=== PATIENT | female | born 2000 | race Caucasian/White ===

== ENCOUNTER 2021-05-04 07:15 | Emergency (ER) | payer SELFPAY ==
[2021-05-04 07:23] VITALS: BP 111/68; PULSE 71; RESP 16; TEMP 37.1; O2SAT 99; BMI 22.1
[2021-05-04 07:29] VITALS: BP 111/68; PULSE 73; RESP 18; O2SAT 100
--- NOTE | 2021-05-04 07:32 | PC.NURSE ---
Mother reports that patient was recently on a trip to [place] and began to have redness and rash to face yesterday. Patient complains of right eye pain with a rating of 5 and describes as burning. Respirations are even and unlabored with no signs of distress noted.
[2021-05-04 07:38] VITALS: BP 98/59; PULSE 64; RESP 18; O2SAT 98
--- NOTE | 2021-05-04 07:40 | W.ED.ALLEREA ---
HPI - Allergic Reaction General: Chief complaint: Allergic Reaction Stated complaint: hives Time Seen by Provider: 05/04/21 07:28 History of Present Illness: HPI narrative: Patient just returned from [place] and started having some swelling to the facial area and itching. Patient has used sunscreen on this area and other areas. Did use a stronger one on the face. Face is been itching and woke up with swelling this morning. Did have some swelling yesterday but not as bad. MD complaint: facial swelling Onset (ago): day(s) Associated symptoms: Reports itching; Deny abdominal pain, nausea or vomiting Severity: mild Treatment prior to arrival: none Review of Systems Const: Denies: fever(s), chills or body aches Eyes: Denies: change in vision or blurry vision ENMT: Denies: throat pain or nasal congestion Card: Denies: chest pain or dyspnea on exertion Resp: Denies: dyspnea, productive cough or non-productive cough GI: Denies: abdominal pain, nausea or vomiting Musc: Denies: extremity pain Skin/Breast: Reports: pruritus, erythema and skin swelling (Face only); Denies: rash Neuro: Denies: headache(s) Psych: Denies: anxiety or depression Trevon/Lymph: Denies: easy bruising Physical Exam Const: COMMON NORMALS: no acute distress HENMT: COMMON NORMALS: Normal external nose present NOSE: Normal external nose present MOUTH: Normal oral and palatal mucosa present THROAT: posterior oropharynx normal Resp: COMMON NORMALS: normal respiratory effort Psych: COMMON NORMALS: mental status grossly normal Skin: OTHER: Mild puffiness in about the eyes. Face is red no erythema noted. Presents as classic allergic reaction. Tongue presents fine. No lymphadenopathy noted. Course Vital Signs: Vital signs: Vital Signs Temperature 98.7 F 05/04/21 07:23 Pulse Rate 64 05/04/21 07:38 Respiratory Rate 18 05/04/21 07:38 Blood Pressure 98/59 05/04/21 07:38 Pulse Oximetry 98 05/04/21 07:38 Discharge Plan Discharge Patient Disposition: Home Clinical Impression: Allergic reaction Qualifiers: Encounter type: initial encounter Qualified Code(s): T78.40XA - Allergy, unspecified, initial encounter Condition: Stable Prescriptions: New prednisone 20 mg tablet 20 mg PO DAILY Qty: 7 RF: 0 Discharge Orders: Discharge ED (Routine); Ordered 05/04/21 Ordered By: Osmel Alonzo Discharge Diet: As Directed Discharge Activity: Resume usual activity Patient Instructions: Allergic Reaction Activity Restrictions/Additional Instructions: Take medication as directed. cad application support specialist some Benadryl at the store and take 25 mg 3-4 times a day to help with itching and swelling. Can apply cold compresses to face to help with swelling. Follow-up your family medical provider if no significant improvement are can return here. Stay out of the sun for the next few days. Do not use sunscreen again for a while. Coding Level of Care Code ED Head Of Housekeeping for Chg Fwd Exam Expanded Problem Focused
== END 2021-05-04 07:40 | disposition home or self-care (01) ==
LOC: ER 07:58
PROVIDERS: Emergency Provider Nurse Practitioner Family
DX: T78.40XA Allergy, unspecified, initial encounter (principal)
CPT/HCPCS: 99282